=== PATIENT | female | born 2000 | race Caucasian/White ===

== ENCOUNTER 2020-05-18 14:46 | Emergency (ER) | payer OTHER ==
[~2020-05-18] VITALS: Ht 165.1 cm; Wt 49.0 kg
--- NOTE | 2020-05-18 17:33 | NUR ---
COVID RESULTS CALLED TO PT.
== END 2020-05-18 16:16 | disposition home or self-care (01) ==
LOC: ED 14:46
DX: O99.511 Diseases of the respiratory system complicating pregnancy, first trimester (principal); J40 Bronchitis, not specified as acute or chronic; Z20.828 Contact with and (suspected) exposure to other viral communicable diseases; Z3A.08 8 weeks gestation of pregnancy
CPT/HCPCS: 99283; C9803; U0003